=== PATIENT | male | born 1970 | race Caucasian/White ===

== ENCOUNTER → 2020-02-27 08:43 | Outpatient (CLI) | payer OTHER, SELFPAY ==
--- NOTE | ~2020-02-27 | MR_ITS ---
EXAMINATION: MR lumbar spine wo con EXAM DATE: 02/27/2020 09:26 INDICATION: Low back pain for years, progressing. TECHNIQUE: Multi-sequential, multiplanar MR images of the lumbar spine were obtained without contrast . Sagittal T1, T2, T2 fat saturation images. Axial T2 weighted images. Comparison is made to prior examination from 05/06/2014. FINDINGS: There is mild disc disease L5-S1 with 3 mm anterolisthesis. The vertebral bodies are otherw ise aligned. There is mild chronic anterior wedging of the T11 vertebral body. There are no suspicio us marrow signal abnormalities. Paraspinal soft tissue is unremarkable. Level by level evaluation: T12-L1: Disc does not extend beyond the endplate margin. Facet arthropathy: Mild. Neural foraminal stenosis: No stenosis. Central canal stenosis: No stenosis. L1-L2: Disc does not extend beyond the endplate margin. Facet arthropathy: Mild. Neural foraminal stenosis: No stenosis. Central canal stenosis: No stenosis. L2-L3: There is a minimal diffuse disc bulge. Facet arthropathy: Mild. Neural foraminal stenosis: Mild left. Central canal stenosis: No stenosis. L3-L4: There is a mild diffuse disc bulge. Facet arthropathy: Mild. Neural foraminal stenosis: Mild to moderate bilateral. Central canal stenosis: No stenosis. L4-L5: There is a mild diffuse disc bulge. Facet arthropathy: Mild. Neural foraminal stenosis: Mild bilateral. Central canal stenosis: No stenosis. L5-S1: There is a mild diffuse disc bulge. Facet arthropathy: Mild. Neural foraminal stenosis: Moderate right, mild to moderate left. Central canal stenosis: No stenosis. Minimal progression in spondylosis compared to prior study. The T11 chronic compression fracture is u nchanged. IMPRESSION: 1. L5-S1 grade 1 anterolisthesis, moderate right neural foraminal stenosis. 2. Otherwise mild spondylosis. Reviewed, dictated and finalized at location A.
== END ==
PROVIDERS: PCP Internal Medicine; Visit Provider Internal Medicine
DX: M54.5 Low back pain (principal); M48.061 Spinal stenosis, lumbar region without neurogenic claudication; M43.17 Spondylolisthesis, lumbosacral region
CPT/HCPCS: 72148

== ENCOUNTER → 2021-06-08 13:18 | Outpatient (CLI) | payer OTHER, SELFPAY ==
--- NOTE | ~2021-06-08 | CT_ITS ---
EXAMINATION: CT BRAIN W/O DATE: 06/08/2021 14:00 INDICATION: Visual disturbances. Dizziness. Anxiety. TECHNIQUE: Computed tomography (CT) of the head was performed without intravenous contrast. The dose- length product was 599.57 mGy-cm. Automated exposure control and iterative reconstruction technique w ere employed. COMPARISON: CT dated 09/22/2011 FINDINGS: Normal brain parenchymal volume for age. Normal marshall-white differentiation. No acute intrac ranial hemorrhage, infarction, mass or mass effect. No ventriculomegaly or midline shift. Midline sagittal images demonstrate a normal corpus callosum, c raniovertebral junction and sella turcica. Basilar cisterns are patent. There is right maxillary sinus mucosal thickening. There is mild mucosal thickening of the frontal an d ethmoid sinuses. Mastoids are pneumatized. No depressed skull fractures. IMPRESSION: 1. No acute intracranial abnormality. 2: Moderate sinus disease, likely chronic. Reviewed, dictated and finalized at location A. NGER
--- NOTE | ~2021-06-08 | US_ITS ---
EXAMINATION: US carotid duplex BI DATE: 06/08/2021 13:44 INDICATION: Visual disturbance, dizziness and anxiety TECHNIQUE: Grayscale, color Doppler, and pulsed Doppler images of the cervical carotid arteries were obtained. The degree of vessel stenosis is placed in one of the following categories: normal, <50%, 5 0-69%, >=70% but less than near-occlusion, near-occlusion, or total occlusion. Note that percent sten osis relative to normal distal artery lumen diameter is indirectly measured from velocity measurement s as described by Hilton, et al. Radiology 2003; 229:340-346. Notes: Normal: Peak systolic velocity <125 centimeters/sec and no plaque <50%. Peak systolic velocity <125 ( EDV <40; ICA/CCA PSV ratio <2.0; used these factors only a tandem lesions or low cardiac output or co ntralateral disease) 50-69 %: PSV 125-230 (EDV 40-100; ratio 2-4) >= 70% but less than near occlusion: PSV greater than 230 (EDV > 100; ratio> 4.0) Near Occlusion: PSV that is variable; markedly narrowed lumen Occlusion: Absent flow on color/spectral Doppler and no lumen on marshall scale. COMPARISON: None. FINDINGS: RIGHT: The right common carotid artery (CCA) peak systolic velocity (PSV) is 146 cm/s. The right internal ca rotid artery (ICA) PSV is 81 cm/s. The right ICA end-diastolic velocity (EDV) is 23 cm/s. The right I CA/CCA PSV ratio is 0.6. The external carotid artery (ECA) PSV is 77 cm/s. There is antegrade flow in the right vertebral artery. LEFT: The left CCA PSV is 101 cm/s. The left ICA PSV is 86 cm/s. The left ICA EDV is 23 cm/s. The left ICA/ CCA PSV ratio is 0.8. The ECA PSV is 118 cm/s. There is antegrade flow in the left vertebral artery. IMPRESSION: 1. Less than 50% stenosis in the right internal carotid artery by sonographic criteria. 2. Less than 50% stenosis in the left internal carotid artery by sonographic criteria. Reviewed, dictated and finalized at location A. ER MACHINE IMPRESSION: 1. Less than 50% stenosis in the right internal carotid artery by sonographic elsa chávez. 2. Less than 50% stenosis in the left internal carotid artery by sonographic ria florence.
== END ==
PROVIDERS: PCP Physician Assistant Medical; Visit Provider Physician Assistant Medical
DX: H53.9 Unspecified visual disturbance (principal); R42 Dizziness and giddiness; F41.9 Anxiety disorder, unspecified; J32.8 Other chronic sinusitis; I65.23 Occlusion and stenosis of bilateral carotid arteries
CPT/HCPCS: 70450; 93880

== ENCOUNTER 2025-04-21 00:47 | Day surgery (SDC) | payer OTHER, SELFPAY ==
[2025-04-10 11:22] VITALS: BMI 33.4
--- OUTSIDE RECORDS SUMMARY | 2025-04-21 00:50 | XMS_ITS | Clinical Summary ---
Author Organization [facility] Address [address] [place] [address] Care Team Providers Care Air Moving Technician Name Role Phone Ricky So MD Primary Care Provider [phone] Source Comments [facility],non-owned Affiliates and Associated Physician Practices is amultiple site organization consisting of ambulatory clinics and hospital sitesin [place], [place], [place] and [place]. This disclosure is being madepursuant to the Care Everywhere program and may not contain all information available regarding this patient. Last updated 18.[facility] [employer] Allergies No known active allergies Social History Tobacco Use Types Packs/Day Years Used Date Smoking Tobacco: Every Day Cigarettes Smokeless Tobacco: Never Alcohol Use Standard Drinks/Week Comments Yes 0 (1 standard drink = 0.6 oz pur e alcohol) social Sex and Gender Information Value Date Recorded Sex Assigned at Not on file Legal Sex Male 10:25 AM CDT Gender Identity Not on file Sexual Orientation Not on file Last Filed Vital Signs Vital Sign Reading Time Taken Comments Blood Pressure 133/77 02/01/2022 7:23 PM CDT Pulse 65 02/01/2022 7:23 PM CDT Temperature 36.1 C (97 F) 02/01/2022 2:12 PM CDT Respiratory Rate 12 02/01/2022 7:23 PM CDT Oxygen Saturation 98% 02/01/2022 7:23 PM CDT Inhaled Oxygen Concentration - - Weight 127 kg (280 lb) 02/01/2022 10:26 AM CDT Height 188 cm (6' 2) 02/01/2022 10:26 AM CDT Body Mass Index 35.95 02/01/2022 10:26 AM CDT Plan of Treatment Health Maintenance Due Date Last Done Comments COLOGUARD (AGES 45-75) - COL ON CA SCREENING 1970 COLON MONITORING 1969 COLONOSCOPY - COLON CA SCREENING 1969 CT COLONOGRAPHY - COLON CA SCREENING 1969 Colorectal Cancer Screening 1970 FIT - COLON CA SCREENING 1969 FLEX SIG - COLON CA SCREENING 1969 LIPID TESTING 1970 HIV SCREENING 01/16/1984 HEPATITIS C SCREENING 01/11/1987 DTAP/TDAP/TD VACCINES (1 - Tdap) 01/16/1988 HEPATITIS B VACCINE (1 of 3 - 19+ 3-dose series) 01/16/1988 PNEUMOCOCCAL VACCINE 50+ (1 of 2 - PCV) 01/16/1988 ZOSTER VACCINE (1 of 2) 2019 DEPRESSION SCREENING 06/18/2024 COVID-19 VACCINE (1 - 2023-2 5 season) 2025 INFLUENZA VACCINE (#1) 2025 HIB VACCINE Aged Out No longer eligi ble based on patient's age to complete this topic HPV VACCINE Aged Out No longer eligi ble based on patient's age to complete this topic MENINGOCOCCAL (Group B) VACC INE SHARED DECISION-MAKING Aged Out No longer eligibl e based on patient's age to complete this topic MENINGOCOCCAL GROUPS A/C/Y/W VACCINE Aged Out No longer eligible b ased on patient's age to complete this topic Insurance AETNA AETNA Care Teams Air Moving Technician Relationship Specialty Start Date End Date Ricky So MD [address] [place] [address] [address] [place] [address] PCP - General Internal Medicine 02/01/22
[2025-04-21 12:53] VITALS: BP 93/59; PULSE 58; RESP 18; TEMP 36.2; O2SAT 100
[2025-04-21] MEDS: LACTATED RINGERS 1,000 ML 150 ML IV CONT (13:02)
--- NOTE | 2025-04-21 13:05 | WPDANESEPPF ---
Anes - Initial Pre Proc Eval Procedure: Operation Date: 04/21/25 14:00 Proposed Procedures p Screening Colonoscopy - Deepak Marcano MD Date/Time: 04/21/25 13:05 Surgeon: Deepak Marcano MD Pre Op Diagnosis: Screening Patient Data Age: 55 Gender: M Height: 1.88 m Weight: 117.9 kg Last Vital Signs Temp 97.1 F L 04/21/25 12:53 Pulse 58 L 04/21/25 12:53 Resp 18 04/21/25 12:53 BP 93/59 L 04/21/25 12:53 Pulse Ox 100 04/21/25 12:53 O2 Del Method Room Air 04/21/25 12:53 Allergies Allergy/AdvReac Type Severity Reaction Status Date / Time atorvastatin (From Lipitor) AdvReac Myalgias, Verified 04/21/25 12:50 fatigue pravastatin AdvReac Fatigued Verified 04/21/25 12:50 Home Medications ?Medication ?Instructions ?Recorded ?Confirmed ?Type amlodipine 10 mg tablet 10 mg PO DAILY #90 tabs 07/28/22 04/10/25 Rx cholecalciferol (vitamin D3) PO 05/08/24 10/24/24 History coenzyme Q10 400 mg capsule 400 mg PO DAILY 05/08/24 04/10/25 History mecobalamin (vitamin B12) PO 05/08/24 10/24/24 History lisinopril 20 1 tablet PO DAILY #90 tabs 10/27/24 04/21/25 Rx mg-hydrochlorothiazide 25 mg tablet clonazepam 0.5 mg tablet 0.25 - 0.5 mg (0.5 - 1 x 0.5 mg) 11/26/24 04/10/25 Rx PO DAILY PRN Anxiety attack #30 tabs ezetimibe 10 mg tablet (Zetia) 10 mg PO DAILY #90 tabs 12/02/24 04/10/25 Rx lisinopril 20 mg tablet 20 mg PO DAILY #90 tabs 12/02/24 04/21/25 Rx spironolactone 25 mg tablet 25 mg PO DAILY #90 tabs 12/02/24 04/10/25 Rx vilazodone 40 mg tablet 40 mg PO DAILY #90 tabs 03/11/25 04/10/25 Rx Patient hx anesthesia problems: none Family hx anesthesia problems: none Results Review: All pre-operative results and documents have been reviewed as part of the pre-operative evaluation. 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 06/05/24 patient declined SDOH Smoking packs per day: 0.5 Smoking cigarettes per day: 10.0 Years smoked: 30 Smoking pack-years: 15.00 Smoking status: Current every day smoker Tobacco type: cigarettes Substance use type: does not use Do You Feel Safe in your Home?: Yes Lack of Transportation: No Lack of Food: Never True Current Housing: I Have Housing Concerned About Future Housing: No Difficulty Paying Gas/Electric Bills: No Difficulty Paying for Meds: No Currently Unemployed: No Education: High School Diploma/GED Difficulty w/ Childcare or Family Care: No Living arrangements: alone Occupation/Education: occupation 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 ) Neurological: alert and oriented Last oral intake: >/= 8 hours ASA classification: III Emergent: no Anesthetic plan: proceed Anesthesia type and monitoring: general GIVS and standard monitoring Results Review: All pre-operative results and documents have been reviewed as part of the pre-operative evaluation. HTN, hyperlipidemia, BMI 33, anxiety, active smoker 1/2 ppd and did smoke at 11 am. Pt states that he can walk daily 5000 steps +, no cp or sob. Informed Consent: The patient's anesthetic plan and its attendant risks and benefits were discussed with the patient/family/POA. Questions were solicited and answers provided to the satisfaction of the patient/family/POA.
--- NOTE | 2025-04-21 14:04 | PM.IMHP ---
H&P: HPI History of Present Illness Date/Time: 04/21/25 14:04 Chief Complaint: Screening colonoscopy Narrative: This is the patient's first colonoscopy. There are no GI symptoms and there is no family history of colorectal cancer. 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 06/05/24 patient declined SDOH Smoking packs per day: 0.5 Smoking cigarettes per day: 10.0 Years smoked: 30 Smoking pack-years: 15.00 Smoking status: Current every day smoker Tobacco type: cigarettes Substance use type: does not use Do You Feel Safe in your Home?: Yes Lack of Transportation: No Lack of Food: Never True Current Housing: I Have Housing Concerned About Future Housing: No Difficulty Paying Gas/Electric Bills: No Difficulty Paying for Meds: No Currently Unemployed: No Education: High School Diploma/GED Difficulty w/ Childcare or Family Care: No Living arrangements: alone Occupation/Education: occupation 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 [employer] Gender identity (if verbalized by the patient): Male Agree to blood products: Yes Meds Home Medications and Allergies Home Medications ?Medication ?Instructions ?Recorded ?Confirmed ?Type amlodipine 10 mg tablet 10 mg PO DAILY #90 tabs 07/28/22 04/10/25 Rx cholecalciferol (vitamin D3) PO 05/08/24 10/24/24 History coenzyme Q10 400 mg capsule 400 mg PO DAILY 05/08/24 04/10/25 History mecobalamin (vitamin B12) PO 05/08/24 10/24/24 History lisinopril 20 1 tablet PO DAILY #90 tabs 10/27/24 04/21/25 Rx mg-hydrochlorothiazide 25 mg tablet clonazepam 0.5 mg tablet 0.25 - 0.5 mg (0.5 - 1 x 0.5 mg) 11/26/24 04/10/25 Rx PO DAILY PRN Anxiety attack #30 tabs ezetimibe 10 mg tablet (Zetia) 10 mg PO DAILY #90 tabs 12/02/24 04/10/25 Rx lisinopril 20 mg tablet 20 mg PO DAILY #90 tabs 12/02/24 04/21/25 Rx spironolactone 25 mg tablet 25 mg PO DAILY #90 tabs 12/02/24 04/10/25 Rx vilazodone 40 mg tablet 40 mg PO DAILY #90 tabs 03/11/25 04/10/25 Rx Allergies Allergy/AdvReac Type Severity Reaction Status Date / Time atorvastatin (From Lipitor) AdvReac Myalgias, Verified 04/21/25 12:50 fatigue pravastatin AdvReac Fatigued Verified 04/21/25 12:50 Vital Signs Vital Signs - 24 hr 04/21/25 12:53 Temperature 97.1 F L Pulse Rate 58 L Respiratory Rate 18 Blood Pressure 93/59 L Pulse Oximetry 100 Oxygen Delivery Room Air Exam Const: General: cooperative and healthy appearing Resp: Effort & Inspection: normal respiratory effort and able to speak in complete sentences Auscultation: clear to auscultation bilaterally Cardio: Rate: regular rate Rhythm: regular rhythm GI: Inspection: normal to inspection GI Palp: No No hepatosplenomegaly present Auscultation: normal bowel sounds Rectal Exam: deferred Skin: General skin exam: normal color Psych: Appearance: grossly normal Mental Status: mental status grossly normal Assessment and Plan Assessment and plan (1) Screening for colon cancer: Code(s): Z12.11 - Encounter for screening for malignant neoplasm of colon Status: Acute Assessment and Plan: The patient is deemed a good candidate for the procedure. Consent signed. Will proceed.
[2025-04-21] MEDS: SIMETHICONE ORAL SUSPENSION 20 MG/0.3 ML 30 ML BOTTLE 0.6 ML IRRIGATION (14:22)
--- NOTE | 2025-04-21 14:37 | S_PTH ---
PATIENT: Jan Hernandez LOC: JOHN #:[id number] AGE/SX: 55/M ROOM: RE04/21/[address]: Deepak Marcano MD : 1970 BED: DIS: 04/21/2025 SPEC #: [id number] RECD: 04/22/25 08:40 STATUS: LISBETH REMeryl #: [id number] APURVA: 04/21/25 14:[address]: Deepak Marcano DEPT: [facility] Surgical RECD BY: Lotus Fermin ENTERED: 04/22/25 08:40 SP TYPE: Surgical OTHR DR: Rachel Gallego PA-C Tissues: A - Colon Polypectomy Procedures: Hematoxylin and Eosin Stain Gross and Microscopic Level 4
[2025-04-21 14:41] VITALS: BP 93/56; PULSE 55; RESP 18; O2SAT 99
[2025-04-21 14:51] VITALS: BP 96/61; PULSE 54; RESP 17; O2SAT 100
[2025-04-21 15:01] VITALS: BP 101/63; PULSE 58; RESP 16; O2SAT 100
== END 2025-04-21 15:08 | disposition home or self-care (01) ==
PROVIDERS: PCP Physician Assistant Medical; Referring Provider Physician Assistant Medical; Visit Provider Internal Medicine Gastroenterology
PROC: 0DJD8ZZ Inspection of Lower Intestinal Tract, Via Natural or Artificial Opening Endoscopic (ICD-10-PCS; CPT 45378; principal; 2025-04-21 14:00)
DX: Z12.11 Encounter for screening for malignant neoplasm of colon (principal); D12.3 Benign neoplasm of transverse colon; I10 Essential (primary) hypertension; E78.5 Hyperlipidemia, unspecified; E55.9 Vitamin D deficiency, unspecified; E53.8 Deficiency of other specified B group vitamins; F41.9 Anxiety disorder, unspecified; F17.210 Nicotine dependence, cigarettes, uncomplicated; E66.9 Obesity, unspecified; Z68.33 Body mass index [BMI] 33.0-33.9, adult; Z80.9 Family history of malignant neoplasm, unspecified; Z82.49 Family history of ischemic heart disease and other diseases of the circulatory system
CPT/HCPCS: 45385; 88305; J2003; J2704; J7120